=== PATIENT | male | born 1970 | race African-American/Black ===

== ENCOUNTER 2022-10-22 17:42 | Emergency (ER) | payer MEDICAID, OTHER ==
[~2022-10-22] VITALS: Ht 167.6 cm; Wt 78.0 kg
[2022-10-22 18:30] LABS: Basophils # (auto) 0 10 ^3/uL (0-0.2); Basophils % (auto) 0.8 % (0.0-2.0); Eosinophils # (auto) 0.1 10 ^3/uL (0-0.8); Eosinophils % (auto) 1.7 % (0.0-7.0); Hematocrit 44.9 % (41.0-53.0); Hemoglobin 14.7 g/dL (13.5-17.5); Lymphocytes # (auto) 2.1 10 ^3/uL (0.4-5.4); Lymphocytes % (auto) 53.3 % (10.0-50.0); Mean Corpuscular Hemoglobin 29.3 pg (28.0-32.0); Mean Corpuscular Hgb Conc. 32.8 g/dL (32.0-36.0); Mean Corpuscular Volume 89.4 fL (80.0-100.0); Monocytes # (auto) 0.4 10 ^3/uL (0-1.3); Monocytes % (auto) 9.1 % (0.0-12.0); Neutrophils # (auto) 1.4 10 ^3/uL (1.6-8.6); Neutrophils % (auto) 35.1 % (37.0-80.0); Nucleated Red Blood Cells % 0.1 %; Red Blood Cells 5.02 10^6/uL (4.5-5.90); Red Cell Distribution Width 15.6 % (11.8-14.3); White Blood Cell 3.9 10^3/uL (4.4-10.8)
[2022-10-22 18:53] LABS: Albumin 3.4 g/dL (3.4-5.0); Calcium 9.2 mg/dL (8.5-10.1); Potassium 4.1 mmol/L (3.5-5.1)
[2022-10-22 18:54] LABS: Salicylate 1.8 mg/dL (2.8-20.0)
[2022-10-22 18:56] LABS: BUN/Creatinine Ratio 5.9 (10.0-20.0); Bilirubin, Total 0.3 mg/dL (0.2-1.0); Total Protein 7.8 g/dL (6.4-8.2)
[2022-10-22 19:05] LABS: Acetaminophen < 2.0 ug/mL (10-30)
[2022-10-22] MEDS ORDERED: diphenhdrAMINE HCL 50 MG/1 ML VL IV ONE (21:45)
[2022-10-22] MEDS ORDERED: LORazepam 2MG/ML-1ML VIAL IM ONE (21:45)
[2022-10-22] MEDS ORDERED: HALOPERIDOL LACTATE 5 MG/ML INJ VIAL IM ONE (21:45)
[2022-10-23 08:18] LABS: Urine WBC None Seen /hpf (0 - 3)
[2022-10-23 08:27] LABS: Urine Bacteria NONE SEEN /hpf (None Seen); Urine Blood Negative /uL (Negative); Urine Mucus FEW (None Seen); Urine Specific Gravity 1.017 (1.001-1.035)
[2022-10-23 08:48] LABS: Alcohol, Urine < 3.0 mg/dL (0-10); Amphetamine Screen, Urine NEGATIVE (NEGATIVE); Barbiturate Scree,Urine NEGATIVE (NEGATIVE); Benzodiazephine Screen, Urine NEGATIVE (NEGATIVE); Cannabinoid Screen, Urine POSITIVE (NEGATIVE); Cocaine Screen, Urine NEGATIVE (NEGATIVE); Phencyclidine Screen, Urine NEGATIVE (NEGATIVE)
[2022-10-23 08:53] LABS: Opiate Scree,Urine NEGATIVE (NEGATIVE)
[2022-10-23] MEDS ORDERED: SERTRALINE HCL 50 MG TAB PO ONE (12:30)
[2022-10-23] MEDS ORDERED: OLANZapine 5 MG TAB PO ONE (12:30)
[2022-10-25] MEDS ORDERED: diphenhdrAMINE HCL 50 MG/1 ML VL IV ONE ×2 (18:00)
[2022-10-25] MEDS ORDERED: HALOPERIDOL LACTATE 5 MG/ML INJ VIAL IM ONE (18:00)
[2022-10-25] MEDS ORDERED: LORazepam 2MG/ML-1ML VIAL IM ONE (18:00)
[2022-10-25] MEDS ORDERED: SERTRALINE HCL 50 MG TAB PO ONE (18:00)
[2022-10-25] MEDS ORDERED: OLANZapine 5 MG TAB PO ONE (18:00)
[2022-10-26] MEDS: SERTRALINE HCL 50 MG TAB PO SCH (16:43)
[2022-10-26] MEDS: OLANZapine 5 MG TAB PO SCH (19:27)
[2022-10-27] MEDS: SERTRALINE HCL 50 MG TAB PO SCH (10:18)
[2022-10-27] MEDS: OLANZapine 5 MG TAB PO SCH (10:18)
[2022-10-28] MEDS: SERTRALINE HCL 50 MG TAB PO SCH (10:10)
[2022-10-28] MEDS: OLANZapine 5 MG TAB PO SCH (19:06)
[2022-10-29] MEDS: SERTRALINE HCL 50 MG TAB PO SCH (11:05)
[2022-10-29] MEDS: OLANZapine 5 MG TAB PO SCH (18:45)
[2022-10-30] MEDS: SERTRALINE HCL 50 MG TAB PO SCH (13:51)
[2022-10-30] MEDS: OLANZapine 5 MG TAB PO SCH (13:51)
[2022-10-30 19:50] VITALS: BP 142/82
== END 2022-10-31 09:05 | disposition short-term general hospital (02) ==
LOC: ER 17:42
DX: R45.851 Suicidal ideations (principal); F32.9 Major depressive disorder, single episode, unspecified; F12.10 Cannabis abuse, uncomplicated; R44.0 Auditory hallucinations; Z20.822 Contact with and (suspected) exposure to COVID-19
CPT/HCPCS: 36415; 80053; 80307; 80329; 81001; 85025; 87426